=== PATIENT | female | born 1990 | race Hispanic/Latino ===

== ENCOUNTER 2016-11-04 10:58 | Emergency (ER) | payer OTHER ==
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
[2016-11-04 14:28] VITALS: BP 110/70; PULSE 78; RESP 20; TEMP 98; O2SAT 98
== END 2016-11-04 14:00 | disposition left against medical advice (07) ==
LOC: H.ER 10:58
DX: Z02.83 Encounter for blood-alcohol and blood-drug test (principal)